=== PATIENT | male | born 1970 | race Caucasian/White ===

== ENCOUNTER 2023-06-22 09:56 | Emergency (ER) | payer BC, SELFPAY ==
--- NOTE | ~2023-06-22 | CT_ITS ---
EXAMINATION: CT pelvis wo con DATE: 06/22/2023 17:42 INDICATION: Fall Wednesday, right hip pain into the back. TECHNIQUE: Computed tomography (CT) of the pelvis was performed without intravenous contrast. Automat ed exposure control and iterative reconstruction technique were employed. The dose-length product was 198.69 mGy-cm. COMPARISON: None FINDINGS: Nondisplaced fracture of the left acetabular roof extending into the anterior column. Minim ally displaced fracture of the left inferior pubic ramus. No other fractures detected. No dislocation . Lower abdominal and pelvic organs are unremarkable. IMPRESSION: Nondisplaced fracture of the left acetabular roof, extending into the anterior column. Nondisplaced f racture of the left inferior pubic ramus. Reviewed, dictated and finalized at location K. BLASTER PAINT SPRAYER IMPRESSION: Nondisplaced fracture of the left acetabular roof, extending into the anterior column. Nondisplaced fracture of the left inferior pubic ramus.
--- NOTE | ~2023-06-22 | CT_ITS ---
EXAMINATION: CT lumbar spine wo con DATE: 06/22/2023 17:42 INDICATION: compression fracture . TECHNIQUE: Computed tomography (CT) of the lumbar spine was performed without intravenous contrast. A utomated exposure control and iterative reconstruction technique were employed. The dose-length produ ct was 402.87 mGy-cm. COMPARISON: X-ray hip bilateral with AP pelvis 06/22/2023. FINDINGS: 5 nonrib-bearing lumbar-type vertebral bodies. Pedicles intact. Normal vertebral body align ment. Mild lumbar scoliosis Mild left-sided height loss at L5. No acute fracture. No severe central c anal narrowing. Severe left neural foraminal narrowing at L5-S1 secondary to degenerative disc and fa cet change. Multiple simple bilateral renal cysts. Mild atherosclerotic calcification. IMPRESSION: No acute fracture or traumatic malalignment in the lumbar spine. Chronic mild compression deformity at L5. Severe left L5-S1 neural foraminal narrowing, on a degenerative basis. Reviewed, dictated and finalized at location K. RVISORY AIDE
--- NOTE | ~2023-06-22 | XR_ITS ---
EXAMINATION: XR hip BI 2V w AP pelvis, XR femur LT min 2V DATE: 06/22/2023 16:41 INDICATION: Pain at the inner left thigh post fall down stairs 2 days prior TECHNIQUE: 1. Anteroposterior view of the pelvis and anteroposterior and frog-leg lateral views of the left hip and anteroposterior and frog-leg lateral views of the right hip and were obtained. 2. AP and lateral views of the left femur were obtained on overlapping proximal and distal images. COMPARISON: None. FINDINGS: 20% left-sided vertebral body height loss at L5 consistent with age-indeterminate compression fractur e. No evident sharply angulated cortex or linear sclerosis or lucency to elevate suspicion for acute fracture. This results in leftward tilt of the visualized lower lumbar spine. Normal alignment in the pelvis and left knee. No other lesions suspicious for fracture identified. Osteoarthritis at the nathan ateral hips with small marginal osteophytes at the right hip and both small marginal osteophytes and mild superomedial predominant joint space narrowing at the left hip. Joint space at the left knee mello ear unremarkable with no left knee joint effusion. Soft tissues are unremarkable. IMPRESSION: 1. Age-indeterminate likely chronic L5 compression fracture with 20% left-sided vertebral body height loss. 2. Mild bilateral hip osteoarthritis, left greater than right. Reviewed, dictated and finalized at location A. MIXER OPERATOR IMPRESSION: 1. Age-indeterminate likely chronic L5 compression fracture with 20% left-sided vertebral body height loss. 2. Mild bilateral hip osteoarthritis, left greater than right.
[2023-06-22 10:14] VITALS: BP 211/115; PULSE 127; RESP 18; TEMP 36.9; O2SAT 100
[2023-06-22 14:41] VITALS: BP 187/111; PULSE 114; RESP 18; O2SAT 98
--- NOTE | 2023-06-22 14:44 | PC.NURSE ---
agree with above assessment. pt requesting work note for wednesday and . no deformity noted.
[2023-06-22 15:00] VITALS: BP 185/112; PULSE 107; RESP 16
--- NOTE | 2023-06-22 15:54 | ECG_ITS ---
Measurements Intervals Martha Rate: 100 P: 58 NJ: 149 QRS: -22 QRSD: 89 T: 38 QT: 332 QTc: 429 Interpretive Statements SINUS TACHYCARDIA POSSIBLE RIGHT ATRIAL ENLARGEMENT [0.25mV P WAVE] LEFT ATRIAL ENLARGEMENT [-0.15mV P WAVE IN V1/V2] INCOMPLETE RIGHT BUNDLE BRANCH BLOCK POSSIBLE INFERIOR MYOCARDIAL INFARCTION , PROBABLY OLD [30 ms Q WAVE IN II/aVF] NO PREVIOUS ECG AVAILABLE FOR COMPARISON Electronically Signed On 06-23-2023 13:16:34 [employer]IGHTCLUB MANAGER by Lachelle Mccabe M.D.
[2023-06-22 16:00] VITALS: BP 157/98; PULSE 101; RESP 16
[2023-06-22 16:18] LABS: Appearance Urine Clear (Clear); Bilirubin Urine Negative (Negative); Blood Urine Negative (Negative); Color Urine Yellow (Yellow); Glucose Urine UA Negative (Negative); Ketones Urine 2+ mg/dL (Negative); Leukocyte Esterase Ur Negative LEU/UL (Negative); Nitrate Urine Negative (Negative); Protein Urine Negative (Negative); Specific Grav Ur 1.026 (1.001-1.035); pH Urine 5.5 (5.0-9.0)
[2023-06-22 16:21] LABS: Basophils Absolute Auto 0.1 K/mm3 (0.0-0.1); Basophils Percent Auto 0.9 % (0.2-1.2); Eosinophils Absolute Auto 0.1 K/mm3 (0-0.3); Eosinophils Percent Auto 0.8 % (0-4.4); Hematocrit 44.9 % (42.0-52.0); Hemoglobin 14.9 g/dL (14.0-18.0); Immature Granulocyte Absolute 0.01 K/mm3 (0.00-0.031); Immature Granulocyte Percent A 0.2 % (0-0.5); Lymphocytes Absolute Auto 1.78 K/mm3 (0.9-3.2); Lymphocytes Percent Auto 27.1 % (18.3-44.2); Mean Corpuscular HGB Conc 33.2 g/dl (32-36); Mean Corpuscular Hemoglobin 29.3 pg (26-34); Mean Corpuscular Volume 88.4 fl (80-100); Mean Platelet Volume 9.8 fl (7.4-10.4); Monocytes Absolute Auto 0.5 K/mm3 (0.1-0.6); Monocytes Percent Auto 7.9 % (2.6-8.5); Neutrophils Absolute Auto 4.1 K/mm3 (1.3-6.7); Neutrophils Percent Auto 63.1 % (45.5-73.1); Platelet Count Result 218 k/mm3 (150-375); Red Blood Count 5.08 M/mm3 (4.6-6.20); Red Cell Distribution Width 12.6 % (11.5-14.5); White Blood Count 6.6 K/mm3 (4.5-10.0)
[2023-06-22 16:25] LABS: Add Urine Microscopic? NO
[2023-06-22 16:30] LABS: Alanine Aminotransferase 24 U/L (6-50); Albumin Level 4.1 g/dL (3.5-5.1); Alkaline Phosphatase 106 U/L (38-126); Anion Gap 10 mmol/L (8-16); Aspartate Amino Transferase 27 U/L (17-59); Bilirubin,Total 1.1 mg/dL (0.2-1.3); Blood Urea Nitrogen 13 mg/dL (9-20); Carbon Dioxide 24 mmol/L (22-30); Chloride 107 mmol/L (98-107); Estimated CRCL calculation 104 ml/min; Estimated Glomerular Filt Rate > 60; Glucose 98 mg/dL (65-110); Potassium 3.8 mmol/L (3.4-5.0); Sodium 141 mmol/L (137-145)
--- NOTE | 2023-06-22 16:46 | ED.FALL ---
HPI - Fall General Chief Complaint: Fall Stated Complaint: pain after fall Wednesday Time Seen by Provider: 06/22/23 15:34 Source: patient, RN notes reviewed and old records reviewed Mode of arrival: ambulatory Limitations: no limitations History of Present Illness HPI Narrative: This is a 52 year old male who presents for evaluation of left leg pain. Patient states he accidentally fell 2 days ago. He states he fell down some stairs. He denies LOC. He states he is having pain to left thigh and right groin. He is able to walk and bear weight. He denies leg numbness or weakness. He is taking ibuprofen for his pain and his pain is improving. He denies headache , dizziness, nausea, vomiting, neck pain or back pain. He states he was told recently that he has elevated blood pressure and he was not allowed to given blood . Related Data Allergies Allergy/AdvReac Type Severity Reaction Status Date / Time No Known Allergies Allergy Verified 06/22/23 10:18 Review of Systems Constitutional: Constitutional: Denies weakness Cardiovascular: Cardiovascular: Denies syncope, Denies rapid heart rate, Denies irregular heart rhythm, Denies leg edema and Denies dyspnea Respiratory: Respiratory: Denies chest congestion, Denies hemoptysis, Denies excessive phlegm production and Denies dyspnea Gastrointestinal: Gastrointestinal: Denies abdominal pain, Denies hematochezia, Denies diarrhea, Denies nausea and Denies vomiting Genitourinary: Genitourinary: Denies hematuria, Denies dysuria, Denies penile discharge and Denies testicular pain Musculoskeletal: Musculoskeletal: Reports myalgias, Reports arthralgias, Denies joint swelling, Denies loss of height and Denies muscle weakness Neurologic: Denies syncope, Denies focal weakness and Denies weakness PMFSH Past Medical History Medical History Elevated blood pressure reading Family History Family History (Updated 02/22/14 @ 07:13 by DOCTOR UNKNOWN) Father Hypertension Social History Social History Smoking status: Current every day smoker Alcohol intake: current Exam Const: General: no acute distress and alert Nutritional Appearance: well nourished Orientation/consciousness: patient oriented x3 Limitations: no limitations HENMT: Head: normal to inspection Face and sinus: normal facial exam and sinuses nontender Eyes: Conjunctivae: conjunctivae normal EOM: EOMs intact bilaterally Neck: Neck: normal visual inspection Chest: Chest palpation & inspection: normal inspection of the chest Resp: Effort & Inspection: normal respiratory effort Auscultation: clear to auscultation bilaterally Cardio: Rate: regular rate Rhythm: regular rhythm Heart sounds: no murmurs GI: GI Palp: Yes Soft to palpation, No Tenderness to palpation present (GI), No Guarding due to palpation present (GI) and No Rigid due to palpation Auscultation: normal bowel sounds Skin: Wounds: wounds noted (abrasion to left elbow) Neuro: General: patient oriented x3, moves all extremities and CN's II-XI intact bilaterally Extrem: Other: FROm of all extremities, strong palpable pulses to all extremities, no deformities noted Psych: Mental Status: mental status grossly normal Affect: normal affect Attitude: cooperative Course Consultations Consultation #1: I discussed CT findings of left acetabular and pubic rami fracture with DR. Quintero. He states these are nonoperative and patient can follow up as outpatient in clinic. toe touch weight bearing Date: 06/22/23 Time: 19:08 Vital Signs Vital signs: Vital Signs Temperature 98.4 F 06/22/23 10:14 Pulse Rate 127 H 06/22/23 10:14 Respiratory Rate 18 06/22/23 10:14 Blood Pressure 211/115 H 06/22/23 10:14 Pulse Oximetry 100 06/22/23 10:14 Oxygen Delivery Room Air 06/22/23 10:14 Temperature 98.4 F 06/22/23 10
--- NOTE | 2023-06-22 17:34 | PC.NURSE ---
pt taken back to ct for additional films
== END 2023-06-22 19:41 | disposition home or self-care (01) ==
PROVIDERS: Emergency Provider General Practice; PCP Family Medicine
DX: S32.435A Nondisplaced fracture of anterior column [iliopubic] of left acetabulum, initial encounter for closed fracture (principal); S32.592A Other specified fracture of left pubis, initial encounter for closed fracture; W10.9XXA Fall (on) (from) unspecified stairs and steps, initial encounter; F17.200 Nicotine dependence, unspecified, uncomplicated
CPT/HCPCS: 36415; 72131; 72192; 73521; 73552; 80053; 81003; 85025; 93005; 99284

== ENCOUNTER 2023-08-27 07:54 | Outpatient (CLI) | payer BC, SELFPAY ==
[2023-08-27 08:55] LABS: Cholesterol 202 mg/dL (0-200); HDL Direct 31 mg/dL; Triglycerides 126 mg/dL (<150)
[2023-08-27 09:10] LABS: LDL Cholesterol Direct 150 mg/dL
[2023-08-27 09:27] LABS: Prostate Specific Antigen 1.1 ng/mL (< OR = 4.0)
== END 2023-08-27 07:55 | disposition home or self-care (01) ==
LOC: ANHLAB 07:56
PROVIDERS: PCP Physician Assistant Medical; Visit Provider Physician Assistant Medical
DX: I10 Essential (primary) hypertension (principal); Z13.220 Encounter for screening for lipoid disorders; Z12.5 Encounter for screening for malignant neoplasm of prostate
CPT/HCPCS: 36415; 80061; 84153; 84443; G0103